=== PATIENT | female | born 2000 | race Two or more races ===

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

== ENCOUNTER → 2022-03-02 | Outpatient (CLI) | payer OTHER, SELFPAY ==
[~2022-03-02] MED LIST changes: +CYCL-707 PO; +LIDO5DIS41 TD; +NAPR-837 PO
[2022-03-02 14:16] LABS: HEMATOCRIT 38.9 % (36.0-47.0); HEMOGLOBIN 12.7 g/dl (12.0-15.5); MEAN CORPUSCULAR HEMOGLOBIN 26.7 pg (27.0-33.0); MEAN CORPUSCULAR HGB CONC 32.6 g/dl (32.0-36.5); MEAN CORPUSCULAR VOLUME 81.7 fl (80.0-96.0); PLATELET COUNT, AUTOMATED 391 10^3/uL (150-450); RED BLOOD COUNT 4.76 10^6/uL (4.00-5.40); WHITE BLOOD COUNT 8.1 10^3/uL (4.0-10.0)
[2022-03-02 15:32] LABS: HEPATITIS C VIRUS ABY INDEX < 0.0 INDEX (<0.8); HIV 1&2 SCREEN CENTAUR NEGATIVE (NEGATIVE)
[2022-03-02 15:48] LABS: GC DNA AMPLIFICATION NEGATIVE (NEGATIVE)
== END ==
LOC: M PLALAB 11:08
PROVIDERS: ATTEND Obstetrics & Gynecology
DX: Z34.01 Encounter for supervision of normal first pregnancy, first trimester (principal)

== ENCOUNTER 2022-03-23 15:40 | Emergency (ER) | payer SELFPAY ==
[~2022-03-23] VITALS: Ht 170.2 cm; Wt 97.8 kg
[2022-03-23] MEDS ORDERED: PRENTAB53 PO (15:45)
[2022-03-23 16:59] LABS: BASO % 0.3 % (0.0-1.0); EOS % 0.4 % (0.0-3.0); HEMATOCRIT 37.4 % (36.0-47.0); HEMOGLOBIN 12.4 g/dl (12.0-15.5); LYMPH % 31.8 % (24.0-44.0); MEAN CORPUSCULAR HEMOGLOBIN 27.2 pg (27.0-33.0); MEAN CORPUSCULAR HGB CONC 33.2 g/dl (32.0-36.5); MONO # 0.5 10^3/uL (0.0-0.8); MONO % 5.7 % (2.0-8.0); NEUTROPHILS # 5.8 10^3/uL (1.5-8.5); NEUTROPHILS % 61.5 % (36.0-66.0); PLATELET COUNT, AUTOMATED 385 10^3/uL (150-450); RED BLOOD COUNT 4.56 10^6/uL (4.00-5.40); WHITE BLOOD COUNT 9.4 10^3/uL (4.0-10.0)
[2022-03-23 17:25] LABS: ALBUMIN 3.2 GM/DL (3.2-5.2); ALT/SGPT 21 U/L (12-78); BILIRUBIN,DIRECT 0.1 MG/DL (0.0-0.2); BILIRUBIN,TOTAL 0.3 MG/DL (0.2-1.0); BLOOD UREA NITROGEN 8 MG/DL (7-18); CALCIUM LEVEL 9.6 MG/DL (8.5-10.1); CARBON DIOXIDE LEVEL 20 MEQ/L (21-32); CHLORIDE LEVEL 107 MEQ/L (98-107); CREATININE FOR GFR 0.59 MG/DL (0.55-1.30); GLUCOSE, FASTING 99 MG/DL (70-100); LIPASE 75 U/L (73-393); SODIUM LEVEL 136 MEQ/L (136-145); TOTAL PROTEIN 7.1 GM/DL (6.4-8.2)
[2022-03-23 17:29] LABS: HCG, SERUM QUALITATIVE POSITIVE (NEGATIVE)
[2022-03-23] MEDS ORDERED: ONDANSETRON 4MG ORAL DISINTEGRATING TAB PO ONE (17:40)
[2022-03-23] MEDS ORDERED: REGL10TA6 PO (18:11)
[2022-03-23] MEDS ORDERED: AMOX500C PO (18:11)
[2022-03-23 18:16] LABS: HCG, SERUM QUANTITATIVE 51891 MIU/ML
[2022-03-23 18:29] LABS: RSV AMPLIFICATION NEGATIVE (NEGATIVE)
[2022-03-23 18:36] VITALS: BP 135/76
== END 2022-03-23 19:03 | disposition home or self-care (01) ==
LOC: M ED 15:40
DX: O23.40 Unspecified infection of urinary tract in pregnancy, unspecified trimester (principal)

== ENCOUNTER 2022-03-29 16:01 | Emergency (ER) | payer OTHER, SELFPAY ==
[~2022-03-29] VITALS: Ht 170.2 cm; Wt 124.7 kg
[~2022-03-29 16:01] MED LIST changes: +AMOX500C PO; +PRENTAB53 PO; +REGL10TA6 PO
[2022-03-29 16:04] VITALS: BP 132/71
[2022-03-29] MEDS ORDERED: ONDANSETRON 4MG 2ML VIAL IV ONE (20:05)
[2022-03-29] MEDS ORDERED: NS 1,000 ML IV ONE (20:05)
[2022-03-29 20:31] LABS: BASO % 0.3 % (0.0-1.0); EOS % 0.4 % (0.0-3.0); HEMATOCRIT 36.9 % (36.0-47.0); HEMOGLOBIN 12.2 g/dl (12.0-15.5); LYMPH # 3.8 10^3/uL (1.5-5.0); MEAN CORPUSCULAR HEMOGLOBIN 27.2 pg (27.0-33.0); MEAN CORPUSCULAR HGB CONC 33.1 g/dl (32.0-36.5); MEAN CORPUSCULAR VOLUME 82.2 fl (80.0-96.0); MONO # 0.6 10^3/uL (0.0-0.8); MONO % 5.3 % (2.0-8.0); NEUTROPHILS # 6.9 10^3/uL (1.5-8.5); NEUTROPHILS % 60.7 % (36.0-66.0); PLATELET COUNT, AUTOMATED 372 10^3/uL (150-450); RED BLOOD COUNT 4.49 10^6/uL (4.00-5.40); WHITE BLOOD COUNT 11.4 10^3/uL (4.0-10.0)
[2022-03-29 21:25] LABS: ALBUMIN 3.1 GM/DL (3.2-5.2); ALT/SGPT 25 U/L (12-78); BILIRUBIN,TOTAL 0.2 MG/DL (0.2-1.0); BLOOD UREA NITROGEN 12 MG/DL (7-18); CALCIUM LEVEL 8.8 MG/DL (8.5-10.1); CARBON DIOXIDE LEVEL 20 MEQ/L (21-32); CHLORIDE LEVEL 107 MEQ/L (98-107); CREATININE FOR GFR 0.59 MG/DL (0.55-1.30); GLUCOSE, FASTING 96 MG/DL (70-100); HCG, SERUM QUANTITATIVE 52411 MIU/ML; POTASSIUM SERUM 3.5 MEQ/L (3.5-5.1); SODIUM LEVEL 136 MEQ/L (136-145); TOTAL PROTEIN 7.2 GM/DL (6.4-8.2)
[2022-03-29] MEDS ORDERED: ONDA4TAB6 PO (22:13)
== END 2022-03-29 22:35 | disposition home or self-care (01) ==
LOC: M ED 16:01
DX: O21.9 Vomiting of pregnancy, unspecified (principal); Z3A.14 14 weeks gestation of pregnancy
CPT/HCPCS: 80053; 84702; 85025; 96361; 96374; 99283; J2405

== ENCOUNTER → 2022-04-13 | Outpatient (CLI) | payer OTHER | LOC: M PLALAB 10:21 | PROVIDERS: ATTEND Advanced Practice Midwife | DX: O99.212 Obesity complicating pregnancy, second trimester (principal) ==

== ENCOUNTER → 2022-05-04 | Outpatient (CLI) | payer OTHER | LOC: M WHC 11:04 | PROVIDERS: ATTEND Advanced Practice Midwife | DX: O99.212 Obesity complicating pregnancy, second trimester (principal); Z3A.19 19 weeks gestation of pregnancy; E66.9 Obesity, unspecified ==

== ENCOUNTER → 2022-05-18 | Outpatient (CLI) | payer OTHER | LOC: M WHC 10:09 | PROVIDERS: ATTEND Obstetrics & Gynecology | DX: Z36.2 Encounter for other antenatal screening follow-up (principal); Z3A.21 21 weeks gestation of pregnancy ==

== ENCOUNTER 2022-06-01 14:39 | Outpatient (CLI) | payer OTHER ==
[~2022-06-01] VITALS: Ht 170.2 cm; Wt 123.3 kg
[2022-06-01] MEDS ORDERED: ACET325C5 PO (14:57)
[2022-06-01 14:58] VITALS: BP 131/74
[2022-06-01] MEDS ORDERED: HOME MED LIST COMPLETE! XX SCH (15:00)
[2022-06-01 16:18] LABS: BASO % 0.2 % (0.0-1.0); EOS % 0.2 % (0.0-3.0); HEMATOCRIT 36.6 % (36.0-47.0); HEMOGLOBIN 11.8 g/dl (12.0-15.5); LYMPH # 1.7 10^3/uL (1.5-5.0); MEAN CORPUSCULAR HEMOGLOBIN 26.9 pg (27.0-33.0); MEAN CORPUSCULAR HGB CONC 32.2 g/dl (32.0-36.5); MEAN CORPUSCULAR VOLUME 83.6 fl (80.0-96.0); MONO # 0.6 10^3/uL (0.0-0.8); MONO % 4.6 % (2.0-8.0); NEUTROPHILS # 10.8 10^3/uL (1.5-8.5); NEUTROPHILS % 81.2 % (36.0-66.0); PLATELET COUNT, AUTOMATED 395 10^3/uL (150-450); RED BLOOD COUNT 4.38 10^6/uL (4.00-5.40); WHITE BLOOD COUNT 13.3 10^3/uL (4.0-10.0)
[2022-06-01 16:30] VITALS: BP 140/82
[2022-06-01] MEDS ORDERED: ONDANSETRON 4MG TAB PO ONE (16:45)
[2022-06-01] MEDS ORDERED: ACETAMINOPHEN 500 MG TAB PO ONE (16:45)
[2022-06-01 16:54] LABS: ALBUMIN 2.9 GM/DL (3.2-5.2); ALT/SGPT 30 U/L (12-78); AMYLASE 57 U/L (25-115); BILIRUBIN,TOTAL 0.6 MG/DL (0.2-1.0); BLOOD UREA NITROGEN 8 MG/DL (7-18); CALCIUM LEVEL 9.4 MG/DL (8.5-10.1); CARBON DIOXIDE LEVEL 25 MEQ/L (21-32); CHLORIDE LEVEL 106 MEQ/L (98-107); CREATININE FOR GFR 0.57 MG/DL (0.55-1.30); GLUCOSE, FASTING 80 MG/DL (70-100); LIPASE 103 U/L (73-393); POTASSIUM SERUM 4.2 MEQ/L (3.5-5.1); SODIUM LEVEL 136 MEQ/L (136-145); TOTAL PROTEIN 7.3 GM/DL (6.4-8.2)
[2022-06-01 17:11] VITALS: BP 142/87
[2022-06-01] MEDS ORDERED: URSO300C3 PO (17:12)
[2022-06-01 17:13] VITALS: BP 127/66
[2022-06-01 17:38] VITALS: BP 134/65
== END 2022-06-01 17:45 | disposition home or self-care (01) ==
LOC: M LDO 14:39
PROVIDERS: ATTEND Advanced Practice Midwife
DX: O21.2 Late vomiting of pregnancy (principal); O26.892 Other specified pregnancy related conditions, second trimester; R10.30 Lower abdominal pain, unspecified; O99.212 Obesity complicating pregnancy, second trimester; E66.9 Obesity, unspecified; O99.612 Diseases of the digestive system complicating pregnancy, second trimester; K80.80 Other cholelithiasis without obstruction; Z3A.23 23 weeks gestation of pregnancy

== ENCOUNTER → 2022-06-08 | Outpatient (CLI) | payer OTHER ==
[~2022-06-08] MED LIST changes: +ACET325C5 PO; +URSO300C3 PO
[2022-06-08 16:15] LABS: HEMATOCRIT 35.4 % (36.0-47.0); HEMOGLOBIN 11.1 g/dl (12.0-15.5); MEAN CORPUSCULAR HEMOGLOBIN 27.1 pg (27.0-33.0); MEAN CORPUSCULAR HGB CONC 31.4 g/dl (32.0-36.5); MEAN CORPUSCULAR VOLUME 86.3 fl (80.0-96.0); PLATELET COUNT, AUTOMATED 369 10^3/uL (150-450); WHITE BLOOD COUNT 11.4 10^3/uL (4.0-10.0)
== END ==
LOC: M PLALAB 11:25
PROVIDERS: ATTEND Obstetrics & Gynecology
DX: O26.612 Liver and biliary tract disorders in pregnancy, second trimester (principal); Z3A.00 Weeks of gestation of pregnancy not specified
CPT/HCPCS: 36415; 82950; 85027; 86850; 86900; 86901; J2790

== ENCOUNTER → 2022-06-15 | Outpatient (CLI) | payer OTHER | LOC: M RAD 13:30 | PROVIDERS: ATTEND Obstetrics & Gynecology | DX: O26.612 Liver and biliary tract disorders in pregnancy, second trimester (principal); Z3A.25 25 weeks gestation of pregnancy ==

== ENCOUNTER 2022-07-06 22:14 | Outpatient (CLI) | payer OTHER ==
[~2022-07-06] VITALS: Ht 170.2 cm; Wt 124.8 kg
[2022-07-06 22:37] VITALS: BP 121/68
[2022-07-06] MEDS ORDERED: ONDANSETRON 4MG 2ML VIAL IV ONE (22:40)
[2022-07-06] MEDS ORDERED: LACTATED RINGER'S 1000 ML IV ONE (22:40)
[2022-07-06] MEDS ORDERED: HOME MED LIST COMPLETE! XX SCH (22:45)
[2022-07-06 23:30] LABS: HEMATOCRIT 33.4 % (36.0-47.0); HEMOGLOBIN 10.9 g/dl (12.0-15.5); MEAN CORPUSCULAR HEMOGLOBIN 26.7 pg (27.0-33.0); MEAN CORPUSCULAR HGB CONC 32.6 g/dl (32.0-36.5); MEAN CORPUSCULAR VOLUME 81.7 fl (80.0-96.0); PLATELET COUNT, AUTOMATED 347 10^3/uL (150-450); RED BLOOD COUNT 4.09 10^6/uL (4.00-5.40); WHITE BLOOD COUNT 11.4 10^3/uL (4.0-10.0)
[2022-07-06] MEDS: LR 1,000 ML IV SCH (23:51)
[2022-07-06 23:56] LABS: ALBUMIN 2.6 G/DL (3.2-5.2); ALKALINE PHOSPHATASE 124 U/L (46-116); ALT/SGPT 18 U/L (7.0-40); AST/SGOT 33 U/L (<34); BILIRUBIN,TOTAL 0.5 MG/DL (0.3-1.2); BLOOD UREA NITROGEN 6 MG/DL (9-23); CALCIUM LEVEL 8.9 MG/DL (8.5-10.1); CARBON DIOXIDE LEVEL 21 MMOL/L (20-31); CHLORIDE LEVEL 106 MMOL/L (98-107); CREATININE FOR GFR 0.46 MG/DL (0.55-1.30); GLUCOSE, FASTING 82 MG/DL (60-100); POTASSIUM SERUM 3.8 MMOL/L (3.5-5.1); SODIUM LEVEL 137 MMOL/L (136-145); TOTAL PROTEIN 6.3 G/DL (5.7-8.2)
[2022-07-07 00:20] VITALS: BP 118/60
[2022-07-07 00:40] VITALS: BP 131/67
[2022-07-07 00:43] LABS: APPEARANCE, URINE MANUAL CLEAR (CLEAR); COLOR, URINE MANUAL YELLOW (YELLOW)
[2022-07-07 00:44] LABS: GLUCOSE, URINE (UA) MANUAL NEGATIVE (NEGATIVE); KETONE, URINE MANUAL NEGATIVE (NEGATIVE); NITRITE, URINE MANUAL NEGATIVE (NEGATIVE); PROTEIN, URINE MANUAL NEGATIVE (NEGATIVE); UROBILINOGEN, URINE MANUAL 1 MG mg/dl (NORMAL)
[2022-07-07 00:45] LABS: BILIRUBIN, URINE MANUAL 1+ (NEGATIVE); BLOOD URINE MANUAL NEGATIVE (NEGATIVE); LEUKOCYTE ESTERASE, URINE MAN NEGATIVE (NEGATIVE)
[2022-07-07 02:56] VITALS: BP 91/53
[2022-07-07 02:57] VITALS: BP 120/59
[2022-07-07] MEDS: LR 1,000 ML IV SCH (02:59)
[2022-07-07 05:04] VITALS: BP 102/57
[2022-07-07 06:38] VITALS: BP 125/59
[2022-07-07] MEDS ORDERED: ONDA4TAB6 PO (09:53)
== END 2022-07-07 09:54 | disposition home or self-care (01) ==
LOC: M LDO 22:14
PROVIDERS: ATTEND Advanced Practice Midwife
DX: O21.8 Other vomiting complicating pregnancy (principal); O99.613 Diseases of the digestive system complicating pregnancy, third trimester; R19.7 Diarrhea, unspecified; Z3A.28 28 weeks gestation of pregnancy
CPT/HCPCS: 59025; 80053; 81002; 85027; 96360; 96361; 96374; J2405

== ENCOUNTER 2022-07-17 20:47 | Outpatient (CLI) | payer OTHER ==
[~2022-07-17] VITALS: Ht 170.2 cm; Wt 126.3 kg
[2022-07-17 21:09] VITALS: BP 136/79
== END 2022-07-17 23:15 | disposition home or self-care (01) ==
LOC: M LDO 20:47 → MERGE 20:47 → M LDO 23:15
PROVIDERS: ATTEND Obstetrics & Gynecology
DX: O36.8130 Decreased fetal movements, third trimester, not applicable or unspecified (principal); O26.893 Other specified pregnancy related conditions, third trimester; R10.9 Unspecified abdominal pain; R25.2 Cramp and spasm; Z3A.29 29 weeks gestation of pregnancy
CPT/HCPCS: 59025; G0463

== ENCOUNTER 2022-08-01 10:40 | Outpatient (CLI) | payer OTHER ==
[~2022-08-01] VITALS: Ht 170.2 cm; Wt 125.8 kg
[2022-08-01 11:04] VITALS: BP 99/63
[2022-08-01] MEDS ORDERED: HOME MED LIST COMPLETE! XX SCH (11:05)
[2022-08-01 12:17] LABS: APPEARANCE, URINE MANUAL HAZY (CLEAR); COLOR, URINE MANUAL YELLOW (YELLOW)
[2022-08-01 12:18] LABS: BILIRUBIN, URINE MANUAL NEGATIVE (NEGATIVE); BLOOD URINE MANUAL NEGATIVE (NEGATIVE); GLUCOSE, URINE (UA) MANUAL NEGATIVE (NEGATIVE); KETONE, URINE MANUAL 1+ mg/dL (NEGATIVE); NITRITE, URINE MANUAL NEGATIVE (NEGATIVE); PH,URINE MAN 5.5 UNITS (5.0 - 7.0); PROTEIN, URINE MANUAL 1+ mg/dL (NEGATIVE); SPECIFIC GRAVITY,URINE MANUAL 1.025 (1.002-1.035); UROBILINOGEN, URINE MANUAL NORMAL (NORMAL)
[2022-08-01 12:19] LABS: LEUKOCYTE ESTERASE, URINE MAN POSITIVE (NEGATIVE)
[2022-08-01 12:29] LABS: WBC, URINE 15-20 /hpf (0-3)
[2022-08-01 12:30] LABS: CALCIUM OXALATE CRYSTALS,URINE MOD AMOUNT /hpf; RENAL EPITHELIAL CELLS, URINE SMALL AMOUNT /hpf; SQUAMOUS EPITHELIAL CELL URINE MOD AMOUNT /hpf (SMALL AMT); TRANSITIONAL EPI CELLS, URINE SMALL AMOUNT /hpf
[2022-08-01 12:31] LABS: AMORPHOUS SEDIMENT, URINE SMALL AMOUNT (NEGATIVE); BACTERIA, URINE LARGE AMOUNT; HYALINE CAST, URINE NONE SEEN /lpf (0-1); MUCUS, URINE SMALL AMOUNT (NEGATIVE)
== END 2022-08-01 14:00 | disposition home or self-care (01) ==
LOC: M LDO 10:40
PROVIDERS: ATTEND Advanced Practice Midwife
DX: O26.893 Other specified pregnancy related conditions, third trimester (principal); R10.2 Pelvic and perineal pain; O99.613 Diseases of the digestive system complicating pregnancy, third trimester; K80.80 Other cholelithiasis without obstruction; O99.213 Obesity complicating pregnancy, third trimester; E66.9 Obesity, unspecified; Z3A.31 31 weeks gestation of pregnancy
CPT/HCPCS: 59025; 81000; 87086; G0378; G0463

== ENCOUNTER → 2022-08-03 | Outpatient (CLI) | payer OTHER | LOC: M RAD 11:29 | PROVIDERS: ATTEND Obstetrics & Gynecology | DX: O26.63 Liver and biliary tract disorders in the puerperium (principal); K83.1 Obstruction of bile duct; O28.8 Other abnormal findings on antenatal screening of mother; Z3A.32 32 weeks gestation of pregnancy ==

== ENCOUNTER → 2022-08-10 | Outpatient (REF) | payer OTHER, MEDICAID ==
[2022-08-10 12:40] LABS: CHOLESTEROL RISK RATIO 3.92 (<5); HDL CHOLESTEROL 60.9 MG/DL (>40); LDL CHOLESTEROL 108.5 MG/DL (<100)
== END ==
LOC: M LAB REF 11:49
PROVIDERS: ATTEND Nurse Practitioner Family
DX: E66.9 Obesity, unspecified (principal)

== ENCOUNTER → 2022-08-25 | Outpatient (REF) | LOC: M LABSMTC 09:30 | PROVIDERS: ATTEND Family Medicine | DX: Z11.52 Encounter for screening for COVID-19 (principal) ==

== ENCOUNTER → 2022-08-26 | Outpatient (REF) | LOC: M EMP 08:43 | PROVIDERS: ATTEND Family Medicine | DX: Z11.52 Encounter for screening for COVID-19 (principal) ==

== ENCOUNTER → 2022-09-07 | Outpatient (REF) | payer OTHER, MEDICAID | LOC: M SFHCWAGY 17:04 | PROVIDERS: ATTEND Obstetrics & Gynecology | DX: Z34.93 Encounter for supervision of normal pregnancy, unspecified, third trimester (principal) ==

== ENCOUNTER 2022-09-14 19:32 | Outpatient (CLI) | payer OTHER, MEDICAID ==
[~2022-09-14] VITALS: Ht 170.2 cm; Wt 129.8 kg
[2022-09-14 20:26] VITALS: BP 127/68
[2022-09-14 23:00] VITALS: BP 146/80
== END 2022-09-14 23:06 | disposition home or self-care (01) ==
LOC: M LDO 19:32
PROVIDERS: ATTEND Advanced Practice Midwife
DX: O26.893 Other specified pregnancy related conditions, third trimester (principal); R25.2 Cramp and spasm; Z3A.38 38 weeks gestation of pregnancy
CPT/HCPCS: 59025; G0463

== ENCOUNTER 2022-09-24 19:01 | Inpatient (IN) | payer OTHER, MEDICAID ==
[~2022-09-24] VITALS: Ht 170.2 cm; Wt 128.3 kg
[2022-09-24] VITALS (17 sets, daily range): BP systolic 106–154; BP diastolic 58–91
[2022-09-24] MEDS ORDERED: LACTATED RINGER'S 1000 ML IV STA (19:26)
[2022-09-24] MEDS ORDERED: OXYTOCIN DRIP 30 UNITS in IV 1 EA IV SCH ×2 (19:30→23:25)
[2022-09-24] MEDS ORDERED: LR 1,000 ML IV SCH (19:30)
[2022-09-24 20:02] LABS: BASO % 0.1 % (0.0-1.0); EOS % 0.1 % (0.0-3.0); HEMATOCRIT 37.8 % (36.0-47.0); HEMOGLOBIN 12.1 g/dl (12.0-15.5); LYMPH # 2.5 10^3/uL (1.5-5.0); LYMPH % 25.3 % (24.0-44.0); MEAN CORPUSCULAR HEMOGLOBIN 25.5 pg (27.0-33.0); MEAN CORPUSCULAR VOLUME 79.6 fl (80.0-96.0); MONO # 0.8 10^3/uL (0.0-0.8); MONO % 7.7 % (2.0-8.0); NEUTROPHILS # 6.5 10^3/uL (1.5-8.5); NEUTROPHILS % 66.5 % (36.0-66.0); PLATELET COUNT, AUTOMATED 366 10^3/uL (150-450); RED BLOOD COUNT 4.75 10^6/uL (4.00-5.40); WHITE BLOOD COUNT 9.8 10^3/uL (4.0-10.0)
[2022-09-24 20:23] LABS: URIC ACID 6.4 MG/DL (3.1-7.8)
[2022-09-24 20:25] LABS: LDH LACTATE DEHYDROGENASE 198 U/L (120-246)
[2022-09-24 20:26] LABS: ALT/SGPT 19 U/L (7.0-40); AST/SGOT 13 U/L (<34); BILIRUBIN,TOTAL 0.5 MG/DL (0.3-1.2); CREATININE FOR GFR 0.58 MG/DL (0.55-1.30)
[2022-09-24] MEDS ORDERED: EPIDURAL/PCA KEYS XX PRN (20:30)
[2022-09-24] MEDS ORDERED: diphenhydrAMINE 50MG/ML VIAL IV PRN (20:30)
[2022-09-24] MEDS ORDERED: ONDANSETRON 4MG 2ML VIAL IV PRN (20:30)
[2022-09-24] MEDS ORDERED: LR 500 ML IV PRN (20:30)
[2022-09-24] MEDS ORDERED: FENTANYL/ROPIVACAINE/NACL BAG 100 ML EPIDURAL SCH (20:30)
[2022-09-24] MEDS ORDERED: NALOXONE INJ 0.4MG/1ML VIAL IV PRN (20:30)
[2022-09-24] MEDS ORDERED: ePHEDrine SULFATE 25 MG/5 ML(5MG/ML) SYRINGE IVP PRN (20:30)
[2022-09-24 23:04] LABS: CORD GAS ABE A -4.4; CORD GAS ABE V -3.1; CORD GAS HCO3 A 23.4 MEQ/L; CORD GAS HCO3 V 22.7 MEQ/L; CORD GAS O2 SAT A 40.7 %; CORD GAS O2 SAT V 55.3 %; CORD GAS PCO2 A 52.7 mmHg; CORD GAS PCO2 V 42.9 mmHg; CORD GAS PH A 7.266 UNITS; CORD GAS PH V 7.341 UNITS; CORD GAS PO2 A 18.8 mmHg; CORD GAS PO2 V 21.9 mmHg; CORD GAS SBC A 19.4 MEQ/L; CORD GAS SBC V 20.8 MEQ/L; CORD GAS TCO2 A 25.1 MEQ/L
[2022-09-24] MEDS ORDERED: METHYLERGONOVINE MALEATE 0.2 MG TAB PO PRN (23:25)
[2022-09-24] MEDS ORDERED: ACETAMINOPHEN 500 MG TAB PO PRN (23:25)
[2022-09-24] MEDS ORDERED: IBUPROFEN 600MG TAB PO PRN (23:25)
[2022-09-24] MEDS ORDERED: DIBUCAINE 1% OINTMENT 30GM TOP PRN (23:25)
[2022-09-24] MEDS ORDERED: ACETAMINOPHEN TAB 650MG DOSE (2X325MG) PO PRN (23:25)
[2022-09-24] MEDS ORDERED: DOCUSATE SODIUM 100MG CAPSULE PO PRN (23:25)
[2022-09-24] MEDS ORDERED: RHOGAM 300MCG (1500IU) INJ IM SCH (23:25)
[2022-09-25 01:09] VITALS: BP 137/63
[2022-09-25 06:20] VITALS: BP_SYST 118; BP_SYST 124; BP_DIAS 66; BP_DIAS 72
[2022-09-25] MEDS: IBUPROFEN 800 MG TAB PO PRN ×2 (06:27→14:12)
[2022-09-25] MEDS: PRENATAL VITAMINS CHEWABLE TABLET PO SCH (08:00)
[2022-09-25 18:00] VITALS: BP 103/61
[2022-09-26] MEDS: PRENATAL VITAMINS CHEWABLE TABLET PO SCH (07:58)
[2022-09-26] MEDS: IBUPROFEN 800 MG TAB PO PRN (07:58)
[2022-09-26] MEDS ORDERED: MEASLES,MUMPS,RUBELLA VACCINE INJ (MMR-II) SC.IMMUN ONE (09:00)
[2022-09-26] MEDS ORDERED: IBUP-1022 PO (10:39)
[2022-09-26] MEDS ORDERED: ACET-683 PO (10:39)
== END 2022-09-26 12:17 | disposition home or self-care (01) | DRG 560 ==
LOC: M LDO 19:01 → M LDI 19:30 → M OBS 09-25 00:35
PROVIDERS: ADMIT Obstetrics & Gynecology; ATTEND Obstetrics & Gynecology
PROC: 10E0XZZ Delivery of Products of Conception, External Approach (ICD-10-PCS; principal; 2022-09-24)
PROC: 0HQ9XZZ Repair Perineum Skin, External Approach (ICD-10-PCS; 2022-09-24)
DX: O70.0 First degree perineal laceration during delivery (principal); O69.1XX0 Labor and delivery complicated by cord around neck, with compression, not applicable or unspecified; Z3A.39 39 weeks gestation of pregnancy; Z37.0 Single live birth; Z86.16 Personal history of COVID-19

== ENCOUNTER 2022-11-14 13:05 | Emergency (ER) | payer OTHER, MEDICAID ==
[~2022-11-14] VITALS: Ht 170.2 cm; Wt 120.4 kg
[~2022-11-14 13:05] MED LIST changes: +ACET-683 PO; +IBUP-1022 PO
[2022-11-14 14:13] LABS: BASO % 0.5 % (0.0-1.0); EOS # 0.1 10^3/uL (0.0-0.5); EOS % 1.8 % (0.0-3.0); HEMATOCRIT 40.7 % (36.0-47.0); HEMOGLOBIN 12.8 g/dl (12.0-15.5); LYMPH # 2.8 10^3/uL (1.5-5.0); MEAN CORPUSCULAR HEMOGLOBIN 25.4 pg (27.0-33.0); MEAN CORPUSCULAR HGB CONC 31.4 g/dl (32.0-36.5); MEAN CORPUSCULAR VOLUME 80.9 fl (80.0-96.0); MONO # 0.4 10^3/uL (0.0-0.8); MONO % 6.5 % (2.0-8.0); NEUTROPHILS # 2.7 10^3/uL (1.5-8.5); PLATELET COUNT, AUTOMATED 399 10^3/uL (150-450); RED BLOOD COUNT 5.03 10^6/uL (4.00-5.40)
[2022-11-14 14:21] LABS: APPEARANCE, URINE HAZY (CLEAR); BACTERIA, URINE AUTO 1+ (NEGATIVE); BILIRUBIN, URINE AUTO NEGATIVE (NEGATIVE); BLOOD, URINE BLOOD NEGATIVE (NEGATIVE); COLOR, URINE YELLOW (YELLOW); GLUCOSE, URINE (UA) AUTO NEGATIVE (NEGATIVE); KETONE, URINE AUTO TRACE mg/dL (NEGATIVE); LEUKOCYTE ESTERASE, URINE AUTO 2+ (NEGATIVE); MUCUS, URINE SMALL (NEGATIVE); NITRITE, URINE AUTO NEGATIVE (NEGATIVE); PROTEIN, URINE AUTO 1+ mg/dL (NEGATIVE); RBC, URINE AUTO 11 /HPF (0-3); SQUAMOUS EPITHELIAL CELL UR AU 4 /HPF (0-6); TRANSITIONAL EPITHELIAL AUTO 1 /HPF; UROBILINOGEN, URINE AUTO 0.2 mg/dL (0.0-2.0); WBC, URINE AUTO 59 /HPF (0-3)
[2022-11-14 14:38] LABS: LIPASE 37 U/L (12-53)
[2022-11-14 14:41] LABS: ALBUMIN 3.5 G/DL (3.2-5.2); ALKALINE PHOSPHATASE 123 U/L (46-116); ALT/SGPT 40 U/L (7.0-40); AST/SGOT 20 U/L (<34); BILIRUBIN,DIRECT 0.1 MG/DL (<0.4); BILIRUBIN,TOTAL 0.4 MG/DL (0.3-1.2); BLOOD UREA NITROGEN 10 MG/DL (9-23); CALCIUM LEVEL 9.2 MG/DL (8.5-10.1); CARBON DIOXIDE LEVEL 28 MMOL/L (20-31); CHLORIDE LEVEL 109 MMOL/L (98-107); CREATININE FOR GFR 0.71 MG/DL (0.55-1.30); GLUCOSE, FASTING 80 MG/DL (60-100); POTASSIUM SERUM 4.6 MMOL/L (3.5-5.1); SODIUM LEVEL 141 MMOL/L (136-145); TOTAL PROTEIN 7.2 G/DL (5.7-8.2)
[2022-11-14] MEDS ORDERED: KETOROLAC 30 MG/ML 1ML VIAL IV ONE (16:45)
[2022-11-14] MEDS ORDERED: NS 1,000 ML IV ONE (16:45)
[2022-11-14] MEDS ORDERED: ONDANSETRON 4MG 2ML VIAL IV ONE (16:45)
[2022-11-14] MEDS ORDERED: CEPH500C PO (18:39)
[2022-11-14] MEDS ORDERED: ONDA4TAB6 PO (18:40)
[2022-11-14 18:45] VITALS: BP 119/68
== END 2022-11-14 19:00 | disposition home or self-care (01) ==
LOC: M ED 13:05
DX: N39.0 Urinary tract infection, site not specified (principal)
CPT/HCPCS: 74176; 80048; 80076; 81001; 83690; 85025; 87086; 96374; 96375; 99283; J1885; J2405

== ENCOUNTER 2022-11-26 22:45 | Emergency (ER) | payer MEDICAID, OTHER ==
[~2022-11-26] VITALS: Ht 170.2 cm; Wt 118.9 kg
[~2022-11-26 22:45] MED LIST changes: +CEPH500C PO
[2022-11-26 23:06] VITALS: BP 140/83
[2022-11-27 00:28] LABS: BASO % 0.4 % (0.0-1.0); EOS # 0.1 10^3/uL (0.0-0.5); EOS % 1.1 % (0.0-3.0); HEMATOCRIT 41.8 % (36.0-47.0); HEMOGLOBIN 12.9 g/dl (12.0-15.5); LYMPH # 2.9 10^3/uL (1.5-5.0); LYMPH % 37.6 % (24.0-44.0); MEAN CORPUSCULAR HGB CONC 30.9 g/dl (32.0-36.5); MONO # 0.5 10^3/uL (0.0-0.8); MONO % 6.3 % (2.0-8.0); NEUTROPHILS # 4.1 10^3/uL (1.5-8.5); NEUTROPHILS % 54.3 % (36.0-66.0); PLATELET COUNT, AUTOMATED 464 10^3/uL (150-450); RED BLOOD COUNT 5.16 10^6/uL (4.00-5.40); WHITE BLOOD COUNT 7.6 10^3/uL (4.0-10.0)
[2022-11-27 00:51] LABS: LIPASE 36 U/L (12-53)
[2022-11-27 00:54] LABS: ALBUMIN 4.2 G/DL (3.2-5.2); ALKALINE PHOSPHATASE 115 U/L (46-116); ALT/SGPT 63 U/L (7.0-40); AST/SGOT 70 U/L (<34); BILIRUBIN,DIRECT 0.3 MG/DL (<0.4); BILIRUBIN,TOTAL 0.8 MG/DL (0.3-1.2); BLOOD UREA NITROGEN 14 MG/DL (9-23); CALCIUM LEVEL 9.4 MG/DL (8.5-10.1); CARBON DIOXIDE LEVEL 26 MMOL/L (20-31); CHLORIDE LEVEL 107 MMOL/L (98-107); CREATININE FOR GFR 0.86 MG/DL (0.55-1.30); GLUCOSE, FASTING 91 MG/DL (60-100); POTASSIUM SERUM 4.5 MMOL/L (3.5-5.1); SODIUM LEVEL 140 MMOL/L (136-145); TOTAL PROTEIN 8.1 G/DL (5.7-8.2)
[2022-11-27 01:34] LABS: APPEARANCE, URINE CLEAR (CLEAR); BACTERIA, URINE AUTO NEGATIVE (NEGATIVE); BILIRUBIN, URINE AUTO NEGATIVE (NEGATIVE); BLOOD, URINE BLOOD 1+ (NEGATIVE); COLOR, URINE YELLOW (YELLOW); GLUCOSE, URINE (UA) AUTO NEGATIVE (NEGATIVE); KETONE, URINE AUTO NEGATIVE (NEGATIVE); LEUKOCYTE ESTERASE, URINE AUTO NEGATIVE (NEGATIVE); MUCUS, URINE SMALL (NEGATIVE); NITRITE, URINE AUTO NEGATIVE (NEGATIVE); PROTEIN, URINE AUTO NEGATIVE (NEGATIVE); RBC, URINE AUTO 12 /HPF (0-3); SPECIFIC GRAVITY URINE AUTO 1.024 (1.002-1.035); SQUAMOUS EPITHELIAL CELL UR AU 2 /HPF (0-6); WBC, URINE AUTO 2 /HPF (0-3)
== END 2022-11-27 01:40 | disposition left against medical advice (07) ==
LOC: M ED 22:45
DX: Z53.21 Procedure and treatment not carried out due to patient leaving prior to being seen by health care provider (principal)

== ENCOUNTER → 2022-12-05 | Outpatient (REF) | payer OTHER, MEDICAID ==
[2022-12-05 12:39] LABS: CHOLESTEROL RISK RATIO 4.17 (<5); HDL CHOLESTEROL 38.3 MG/DL (>40); LDL CHOLESTEROL 87.5 MG/DL (<100); NON-HDL-C 121.7 MG/DL
== END ==
LOC: M LAB REF 12:06
PROVIDERS: ATTEND Nurse Practitioner Family
DX: R79.89 Other specified abnormal findings of blood chemistry (principal)

== ENCOUNTER → 2022-12-23 | Outpatient (CLI) | payer OTHER | LOC: M RAD 07:31 | PROVIDERS: ATTEND Nurse Practitioner Family | DX: R10.11 Right upper quadrant pain (principal); K82.8 Other specified diseases of gallbladder ==

== ENCOUNTER 2023-01-17 12:02 | Emergency (ER) | payer OTHER ==
[~2023-01-17] VITALS: Ht 170.2 cm; Wt 120.4 kg
[2023-01-17 13:41] LABS: BASO % 0.4 % (0.0-1.0); EOS # 0.1 10^3/uL (0.0-0.5); EOS % 0.8 % (0.0-3.0); HEMATOCRIT 39.6 % (36.0-47.0); HEMOGLOBIN 12.7 g/dl (12.0-15.5); LYMPH # 3.3 10^3/uL (1.5-5.0); LYMPH % 37.2 % (24.0-44.0); MEAN CORPUSCULAR HEMOGLOBIN 25.3 pg (27.0-33.0); MEAN CORPUSCULAR HGB CONC 32.1 g/dl (32.0-36.5); MONO # 0.5 10^3/uL (0.0-0.8); MONO % 5.8 % (2.0-8.0); NEUTROPHILS % 55.5 % (36.0-66.0); PLATELET COUNT, AUTOMATED 414 10^3/uL (150-450); RED BLOOD COUNT 5.01 10^6/uL (4.00-5.40); WHITE BLOOD COUNT 8.9 10^3/uL (4.0-10.0)
[2023-01-17 14:05] LABS: BLOOD UREA NITROGEN 10 MG/DL (9-23); CALCIUM LEVEL 8.9 MG/DL (8.5-10.1); CARBON DIOXIDE LEVEL 26 MMOL/L (20-31); CHLORIDE LEVEL 108 MMOL/L (98-107); CREATININE FOR GFR 0.72 MG/DL (0.55-1.30); GLUCOSE, FASTING 71 MG/DL (60-100); POTASSIUM SERUM 4.4 MMOL/L (3.5-5.1); SODIUM LEVEL 140 MMOL/L (136-145)
[2023-01-17 14:07] LABS: HCG, SERUM QUALITATIVE NEGATIVE (NEGATIVE); THYROID STIMULATING HORMONE 1.332 uIU/ML (0.48-4.17)
[2023-01-17] MEDS ORDERED: KETOROLAC 30 MG/ML 1ML VIAL IV ONE (14:40)
[2023-01-17 17:25] VITALS: TEMP 97.3; O2SAT 100
[2023-01-17 17:34] VITALS: BP 125/73
== END 2023-01-17 18:00 | disposition home or self-care (01) ==
LOC: M ED 12:02
DX: R55 Syncope and collapse (principal); M54.50 Low back pain, unspecified; E66.9 Obesity, unspecified
CPT/HCPCS: 70450; 72125; 72131; 80048; 84443; 84703; 85025; 93005; 96374; 99284; J1885

== ENCOUNTER → 2023-02-13 | Day surgery (SDC) | payer OTHER ==
[~2023-02-13] VITALS: Ht 170.2 cm; Wt 119.5 kg
[~2023-02-13] MED LIST changes: +ACETAMINOPHEN 1000MG 100ML IV BAG As Ordered ONE; +KETOROLAC 60MG 2ML VIAL As Ordered ONE; +LIDOCAINE 2% 100MG/5ML SDV (FOR ANES.) As Ordered ONE; +LR 1,000 ML IV SCH; +METOCLOPRAMIDE INJ 10MG/2ML VIAL As Ordered ONE; +MIDAZOLAM INJ 2MG/2ML VIAL As Ordered ONE; +NORCO, ANEXSIA 5/325MG TABLET (HYDROcodone/ACETAMINOPHEN) PO PRN; +ONDANSETRON 4MG 2ML VIAL As Ordered ONE; +ONDANSETRON 4MG 2ML VIAL IV PRN; +ROCURONIUM BROMIDE 50MG/5ML VIAL As Ordered ONE; +SUGAMMADEX SODIUM 500 MG/5 ML VIAL (BRIDION) As Ordered ONE; +fentaNYL 100 MCG/2 ML INJECTION IV PRN; +fentaNYL 250 MCG/5 ML INJECTION As Ordered ONE; +oxyCODONE 5MG TAB PO PRN; +propofoL 200 MG/20 ML VIAL As Ordered ONE
[2023-02-13] MEDS: HYDROMORPHONE HCL 0.5 MG/ 0.5 ML SYRINGE IV PRN ×2 (12:00→12:05)
[2023-02-13 13:25] VITALS: BP 133/79; TEMP 97.8; O2SAT 96
== END | disposition home or self-care (01) ==
LOC: M SDC 09:07
PROVIDERS: ATTEND Surgery
DX: K80.10 Calculus of gallbladder with chronic cholecystitis without obstruction (principal)
CPT/HCPCS: 47562; 88304; J0131; J0665; J1100; J1170; J1885; J2250; J2405; J2765; J3010; S2900

== ENCOUNTER → 2023-02-27 | Outpatient (REF) | payer OTHER, MEDICAID ==
[~2023-02-27] MED LIST changes: -ACETAMINOPHEN 1000MG 100ML IV BAG As Ordered ONE; -KETOROLAC 60MG 2ML VIAL As Ordered ONE; -LIDOCAINE 2% 100MG/5ML SDV (FOR ANES.) As Ordered ONE; -LR 1,000 ML IV SCH; -METOCLOPRAMIDE INJ 10MG/2ML VIAL As Ordered ONE; -MIDAZOLAM INJ 2MG/2ML VIAL As Ordered ONE; -NORCO, ANEXSIA 5/325MG TABLET (HYDROcodone/ACETAMINOPHEN) PO PRN; -ONDANSETRON 4MG 2ML VIAL As Ordered ONE; -ONDANSETRON 4MG 2ML VIAL IV PRN; -ROCURONIUM BROMIDE 50MG/5ML VIAL As Ordered ONE; -SUGAMMADEX SODIUM 500 MG/5 ML VIAL (BRIDION) As Ordered ONE; -fentaNYL 100 MCG/2 ML INJECTION IV PRN; -fentaNYL 250 MCG/5 ML INJECTION As Ordered ONE; -oxyCODONE 5MG TAB PO PRN; -propofoL 200 MG/20 ML VIAL As Ordered ONE
[2023-02-27 12:49] LABS: CHOLESTEROL RISK RATIO 3.8 (<5); HDL CHOLESTEROL 36.8 MG/DL (>40); NON-HDL-C 103.2 MG/DL
== END ==
LOC: M LAB REF 11:33
PROVIDERS: ATTEND Nurse Practitioner Family
DX: R79.89 Other specified abnormal findings of blood chemistry (principal)

== ENCOUNTER → 2023-07-02 | Outpatient (REF) | payer OTHER | LOC: M LAB REF 17:37 | PROVIDERS: ATTEND Physician Assistant Medical | DX: B34.9 Viral infection, unspecified (principal) ==

== ENCOUNTER → 2023-09-22 | Outpatient (REF) | payer OTHER | LOC: M LAB REF 16:30 | PROVIDERS: ATTEND Physician Assistant | DX: J02.9 Acute pharyngitis, unspecified (principal) ==

== ENCOUNTER 2024-09-01 13:30 | Emergency (ER) | payer OTHER ==
[~2024-09-01] VITALS: Ht 170.2 cm; Wt 118.0 kg
[~2024-09-01 13:30] MED LIST changes: +ONDA-282 PO; -ONDA4TAB6 PO
[2024-09-01] MEDS: ONDANSETRON 4MG ORAL DISINTEGRATING TAB PO ONE (14:35)
[2024-09-01] MEDS ORDERED: ONDA-282 PO (15:05)
[2024-09-01 15:49] VITALS: BP 122/82; TEMP 98.7; O2SAT 98
== END 2024-09-01 15:51 | disposition home or self-care (01) ==
LOC: M ED 13:30
DX: R11.2 Nausea with vomiting, unspecified (principal); R19.7 Diarrhea, unspecified; Z79.83 Long term (current) use of bisphosphonates

== ENCOUNTER 2024-09-03 10:46 | Emergency (ER) | payer OTHER ==
[~2024-09-03] VITALS: Ht 170.2 cm; Wt 118.4 kg
[2024-09-03 15:39] VITALS: BP 127/75; TEMP 97.3; O2SAT 96
== END 2024-09-03 15:41 | disposition home or self-care (01) ==
LOC: M ED 10:46
DX: S80.01XA Contusion of right knee, initial encounter (principal); W10.8XXA Fall (on) (from) other stairs and steps, initial encounter; Z79.83 Long term (current) use of bisphosphonates; Y92.009 Unspecified place in unspecified non-institutional (private) residence as the place of occurrence of the external cause; Y93.89 Activity, other specified; Y99.9 Unspecified external cause status